=== PATIENT | female | born 1955 | race Two or more races ===

== ENCOUNTER → 2021-01-20 | Outpatient (CLI) | payer MEDICARE ==
[~2021-01-20] MED LIST: CONTRAST GIVEN. MC PRN
[2021-01-20 08:30] LABS: BASO % 1 % (0-3); EOS # 0.3 x10^3/uL (0.0-0.7); EOS % 5 % (0-3); HEMATOCRIT 40.3 % (36.0-47.0); HEMOGLOBIN 13.5 g/dL (12.0-15.5); LYMPH # 1.7 x10^3/uL (1.0-4.8); LYMPH % 36 % (24-48); MEAN CORPUSCULAR HEMOGLOBIN 27 pg (25-35); MEAN CORPUSCULAR HGB CONC 34 g/dL (31-37); MEAN CORPUSCULAR VOLUME 81 fL (79-100); MONO # 0.6 x10^3/uL (0.0-1.1); MONO % 12 % (0-9); NEUT # 2.2 x10^3/uL (1.8-7.7); NEUT % 46 % (31-73); PLATELET COUNT 229 x10^3/uL (140-400); WHITE BLOOD COUNT 4.7 x10^3/uL (4.0-11.0)
[2021-01-20 08:50] LABS: DIRECT BILIRUBIN 0.2 mg/dL (0.0-0.2); TOTAL BILIRUBIN 0.6 mg/dL (0.2-1.0); TOTAL PROTEIN 8.1 g/dL (6.4-8.2)
[2021-01-20 09:31] LABS: CREATININE 0.5 mg/dL (0.6-1.0); GFR 123.8
[2021-01-20] MEDS: IOHEXOL 240 MG/ML 50ML VIAL. PO ONE (10:00)
[2021-01-20] MEDS: IOHEXOL 300 MG/ML 100ML VIAL. IV ONE (10:00)
--- NOTE | 2021-01-20 10:50 | RAD ---
EXAM: Abdomen and pelvis CT with intravenous contrast. HISTORY: Cholelithiasis. TECHNIQUE: Computed tomographic images of the abdomen and pelvis were obtained following the administ ration of intravenous contrast. Multiplanar reformatting was performed. *One or more of the following individualized dose reduction techniques were utilized for this examina tion: 1. Automated exposure control. 2. Adjustment of the mA and/or kV according to patient size. 3. Use of iterative reconstruction technique. COMPARISON: None. FINDINGS: Evaluation of the lower thorax demonstrates medial right middle lobe and lingular atelectas is or scarring. There is no infiltrate or pleural effusion. No suspicious hepatic lesion is seen. The re is cholelithiasis. There is hyperdensity within the gallbladder fundus which may be due to stones within a phrygian cap or segmental phrygian cap wall calcification. There is a prominent common bile duct. No common duct stone is seen on this exam. The pancreas, spleen, stomach and adrenal glands are unremarkable. The kidneys are unremarkable. There is no appendicitis. There is moderate colonic stool. There is no bowel obstruction. The urinary bladder, uterus and adnexal regions are unremarkable. The aorta is normal in caliber. There is no ly mphadenopathy. There is no suspicious osseous lesion. There is degenerative change primarily at L1-L2 and L5-S1. IMPRESSION: 1. Cholelithiasis with associated stones within the phrygian cap or slight phrygian cap wall calcific ation. Note is made that the gallbladder sonography can better assess for superimposed cholecystitis if there is clinical concern. 2. Mild common bile duct dilatation. No convincing stone is seen. However, gallbladder sonography or MRCP can better assess for choledocholithiasis if there is clinical concern. Electronically signed by: Claudia Reeves MD (01/20/2021 10:47 AM) [id number]
== END ==
LOC: CT 09:38
PROVIDERS: ATTEND Surgery
DX: K80.20 Calculus of gallbladder without cholecystitis without obstruction (principal); K83.9 Disease of biliary tract, unspecified
CPT/HCPCS: 36415; 74177; 80076; 82565; 84520; 85025; Q9966; Q9967

== ENCOUNTER → 2021-01-27 | Outpatient (CLI) | payer MEDICARE ==
[~2021-01-27] MED LIST changes: +AMLO-186 PO; -CONTRAST GIVEN. MC PRN; +HYDR-2761 PO; +HYDR-2868 PO; +LOSA1TAB22 PO; +OMEG1CAP27 PO; +OMEP20TA8 PO; +POTA20TA4 PO
== END ==
LOC: LAB 13:57
PROVIDERS: ATTEND Surgery
DX: Z01.812 Encounter for preprocedural laboratory examination (principal); K80.20 Calculus of gallbladder without cholecystitis without obstruction; Z20.822 Contact with and (suspected) exposure to COVID-19
CPT/HCPCS: U0003

== ENCOUNTER 2021-01-31 06:08 | Observation (INO) | payer MEDICARE ==
[2021-01-30 23:00] VITALS: BP 117/61
[~2021-01-31] VITALS: Ht 160 cm; Wt 85.0 kg
[2021-01-31] VITALS (11 sets, daily range): BP systolic 102–143; BP diastolic 45–91
[~2021-01-31 06:08] MED LIST changes: -HYDR-2761 PO; +HYDROmorphone 2 MG/ML VIAL IVP PRN; +IV RINGERS,LACTATED 1000ML 1,000 ML IV SCH; +PROCHLORPERAZINE 10 MG/2 ML VIAL. IVP PRN; +fentaNYL PF VIAL 100 MCG/2 ML VIAL IVP PRN
[2021-01-31] MEDS ORDERED: BUPIVACAINE MPF 0.5% 30 ML VIAL. ONE (07:07)
[2021-01-31] MEDS ORDERED: SURGICEL HEMOSTAT 4X8 EACH. ONE (07:07)
[2021-01-31] MEDS ORDERED: IOHEXOL 300 MG/ML 50 ML VIAL. ONE (07:07)
[2021-01-31] MEDS ORDERED: PROPOFOL 10 MG/ML (20ML) VIAL. IV ONE (07:14)
[2021-01-31] MEDS ORDERED: LIDOCAINE 2% PF 5 ML VIAL. ONE (07:14)
[2021-01-31] MEDS ORDERED: SUCCINYLCHOLINE 200 MG/10 ML VIAL. ONE (07:15)
[2021-01-31] MEDS ORDERED: fentaNYL PF VIAL 100 MCG/2 ML VIAL ONE ×4 (07:15→10:09)
[2021-01-31] MEDS ORDERED: ROCURONIUM 50 MG/5 ML VIAL. ONE (07:15)
[2021-01-31] MEDS ORDERED: MIDAZOLAM HCL/PF 2 MG/2 ML VIAL. ONE (07:28)
[2021-01-31] MEDS ORDERED: DESFLURANE 31 TO 60 MINUTES IH ONE (07:57)
[2021-01-31] MEDS ORDERED: PHENYLEPHRINE in 0.9% NACL PF 1 MG/10 ML SYRINGE. IV ONE (07:57)
[2021-01-31] MEDS ORDERED: NEOSTIGMINE METHYLSULFATE 5 MG/5 ML SYRINGE. ONE (08:28)
[2021-01-31] MEDS ORDERED: GLYCOPYRROLATE 1 MG/5 ML VIAL. ONE (08:28)
[2021-01-31] MEDS ORDERED: PROCHLORPERAZINE 10 MG/2 ML VIAL. ONE (08:54)
--- NOTE | 2021-01-31 09:03 | PDOC4 ---
Operative Note Operative Note Operative Note: Preoperative Diagnosis: Symptomatic cholelithiasis Postoperative Diagnosis: Same Procedure: Laparoscopic cholecystectomy with intraoperative cholangiogram Surgeons: Keith Ham Boner: SHALOM Barba Anesthesia: Gen. Estimated Blood Loss: 10 mL Specimen: Gallbladder to pathology Findings: Common duct filling defects Drains: 19 Fr ALIREZA Complications: None Indications: The patient is a 65-year-old female who was referred with symptomatic cholelithiasis. Surgical treatment was offered by means of a laparoscopic cholecystectomy. The risks of surgery were discussed which include bleeding, infection, bile duct injury, bile leak, pain, the potential for additional surgeries or procedures. The patient understands and would like to proceed. Description: The patient was taken to the operating room and laid supine on the operating table. General anesthesia was performed. The abdomen was prepped with ChloraPrep and draped in a standard surgical fashion. A small supraumbilical incision was made with a scalpel. The Veress needle was then in serted and a pneumoperitoneum was then created. A 5 mm trocar was then inserted and the laparoscope was introduced. In the upper midabdomen a 12 mm trocar was inserted and in the right upper quadrant two 5 mm trocar were inserted. The gallbladder was retracted cephalad. The cystic duct was dissected free from surrounding tissues. One clip was placed on the duct near the gallbladder junction. An opening was made in the duct and a cholangiocatheter placed within and secured with a clip. Using contrast dye and fluoroscopy an intraoperative cholangiogram was performed. This showed filling defects in the distal common duct with some proximal dilation consistent with choledocholithiasis. Contrast did pass into the duodenum. The clip and catheter were then withdrawn. Two clips were placed on the cystic duct and it was divided. The cystic artery was then identified, dissected free, doubly clipped and divided as well. The gallbladder was then mobilized away from the liver with cautery. The gallbladder was then placed in an endoscopic bag and extracted at the superior trocar site. The fascia there was closed with an 0 Vicryl suture and infiltrated with 0.5% marcaine. A 19 Moroccan ALIREZA drain was then left in the gallbladder fossa with an exit site in the right lateral port incision. This was secured to the skin with 2-0 silk. All blood and irrigation fluid was suctioned and hemostasis was good. The remaining ports were removed and the pneumoperitoneum was relieved. The skin incisions were closed using 4-0 Monocryl suture. Steri-Strips and dressings were then applied. The patient tolerated the procedure well and was sent to the recovery room in stable condition. At the end of the case all counts were correct. STACY TEAGUE MD Jan 31, 2021 09:03
[2021-01-31] MEDS: IV NORMAL SALINE 1000ML BAG 1,000 ML IV SCH (09:15)
[2021-01-31] MEDS ORDERED: 0.9 % SODIUM CHLORIDE 10 ML DISP.SYRIN. IV PRN (09:15)
[2021-01-31] MEDS: IV 1/2 NORMAL SALINE 1,000 ML IV SCH ×2 (09:15→23:17)
[2021-01-31] MEDS ORDERED: NALOXONE 0.4 MG/ML VIAL. IV PRN (09:15)
[2021-01-31] MEDS ORDERED: ONDANSETRON PF 4 MG/2 ML VIAL. IVP PRN (09:15)
[2021-01-31] MEDS ORDERED: HYDROcodone/APAP 5/325MG 1 TAB TABLET PO PRN (09:15)
[2021-01-31] MEDS ORDERED: HYDROmorphone 2 MG/ML VIAL IV PRN (09:15)
[2021-01-31] MEDS: fentaNYL PF VIAL 100 MCG/2 ML VIAL IVP PRN ×4 (09:17→10:13)
[2021-01-31] MEDS ORDERED: MORPHINE SULFATE 2 MG/ML VIAL. ONE (09:29)
[2021-01-31] MEDS: MORPHINE SULFATE 2 MG/ML VIAL. IVP PRN ×2 (09:34→10:14)
--- NOTE | 2021-01-31 10:06 | RAD ---
C-arm fluoroscopy with fluoroscopic spot views Clinical indications: Intraoperative cholangiogram. History of abdominal pain and cholelithiasis. Cho lecystectomy. Total fluoroscopic time: 0.35 minutes. Total fluoroscopic spot images: 4. FINDINGS/ IMPRESSION: Fluoroscopic spot views demonstrate 2 large stones within the common bile duct. The more proximal stone within the common bile duct could represent one large faceted stone or 2 separate ston es. Therefore, it is possible that there are 3 stones present here. There is another filling defect w ithin the distal common hepatic duct which may represent an additional stone. There is dilatation of the extrahepatic biliary tree. There is free flow of contrast from the common bile duct into the duod enum. I called this result to the radiology department at 10:00 AM on January 31, 2021 and the x-ray technolo rust told me that Dr. Parker did make mention of common bile duct stones after obtaining the cholang iogram in the operating room. Electronically signed by: Clovis Cooper MD (01/31/2021 10:03 AM) [id number]
--- NOTE | 2021-01-31 10:47 | PDOC2 ---
GI CONSULT Date of Service: DATE: 01/31/21 TIME: 10:39 Reason For Consult: CBD stones HPI: HPI: 65 y/o female who is Armenian-speaking - daughter Cherie helps with history and translation. Previously d/w Dr. Parker. Had lap radha this morning for symptomatic cholelithiasis, IOC noted choledochol ithiasis, admitted. Having some upper abd pain. H/o GERD on omeprazole QD. No dysphagia, n/v, diarrhea, hematochezia, melena, or weight loss. Lifelong history of constipation - untreated. No previous EGD. Reports normal colonoscopy ~12 years ago. No liver, pancreas, or PUD history. Labs on 01/20 significant for ALT 64, Alk Phos 140. Outpt CT noted prominent CBD. COVID negative 01/27. PMH: PMH: HTN tubal ligation, cholecystectomy FH: Family History: No pertinent hx Social History: Smoke: No ALCOHOL: none Drugs: None ROS: GEN: Denies fevers, chills, sweats HEENT: Denies blurred vision, sore throat CV: Denies chest pain RESP: Denies shortness of air, cough GI: Per HPI : Denies hematuria, dysuria ENDO: Denies weight changes NEURO: Denies confusion, dizziness MSK: Denies weakness, joint pain/swelling SKIN: Denies jaundice, pruritus Vitals: Vitals: Vital Signs Date Time Temp Pulse Resp B/P (MAP) Pulse Ox O2 Delivery O2 Flow Rate FiO2 01/31/21 10:14 15 100 Room Air 2.0 01/31/21 10:00 97.9 84 118/59 97.9 Allergies: Coded Allergies: latex (Verified Allergy, Unknown, Rash, 01/25/21) Medications: Current Medications Medications (Trade) Dose Ordered Sig/Emy Route PRN Reason Start Time Stop Time Status Last Admin Dose Admin Fentanyl Citrate (Fentanyl 2ml Vial) 50 mcg PRN Q5MIN PRN IVP MODERATE PAIN 4-6 01/31/21 06:00 02/01/21 05:59 01/31/21 10:13 Morphine Sulfate (Morphine Sulfate) 1 mg PRN Q10MIN PRN IVP SEVERE PAIN 7-10 01/31/21 06:00 02/01/21 05:59 01/31/21 10:14 Ringer's Solution 1,000 ml @ 30 mls/hr Q24H IV 01/31/21 06:00 01/31/21 17:59 01/31/21 07:10 Prochlorperazine Edisylate (Compazine) 5 mg PACU PRN PRN IVP NAUSEA, MRX1 01/31/21 06:00 02/01/21 05:59 01/31/21 09:17 Cefazolin Sodium/ Dextrose 50 ml @ 100 mls/hr 1X ONCE IV 01/31/21 06:00 01/31/21 06:29 DC 01/31/21 07:50 Iohexol (Omnipaque 300 Mg/ml) 50 ml STK-MED ONCE .ROUTE 01/31/21 07:07 01/31/21 07:07 DC 01/31/21 08:07 Bupivacaine HCl (Sensorcaine Mpf 0.5%) 30 ml STK-MED ONCE .ROUTE 01/31/21 07:07 01/31/21 07:07 DC 01/31/21 08:07 Imaging: Imaging: IOC 01/31 IMPRESSION: Fluoroscopic spot views demonstrate 2 large stones within the common bile duct. The more proximal stone within the common bile duct could represent one large faceted stone or 2 separate stones. Therefore, it is possible that there are 3 stones present here. There is another filling defect within the distal common hepatic duct which may represent an additional stone. There is dilatation of the extrahepatic biliary tree. There is free flow of contrast from the common bile duct into the duodenum. I called this result to the radiology department at 10:00 AM on January 31, 2021 and the x-ray technologist told me that Dr. Parker did make mention of common bile duct stones after obtaining the cholangiogram in the operating room. PE: GEN: NAD HEENT: Atraumatic, PERRL LUNGS: CTAB HEART: RRR ABD: pretty quiet, soft, epigastric and RUQ discomfort, RUQ drain serous, ice pack EXTREMITY: No edema SKIN: No rashes, no jaundice NEURO/PSYCH: A & O 3 A/P: A/P: S/p cholecystectomy, choledocholithiasis on IOC Upper abd pain GERD - on PPI CRC screen - overdue for screening COVID negative 01/27/21 -- D/w Dr. Wheatley - will recheck labs, plan for ERCP tomorrow morning. Outpt screening colonoscopy +/- EGD. ZAID CARVAJAL Jan 31, 2021 10:47
[2021-01-31] MEDS ORDERED: LOSARTAN POTASSIUM 50 MG TABLET. PO SCH ×2 (11:00→21:00)
[2021-01-31] MEDS ORDERED: hydroCHLOROthiazide 25 MG TABLET PO SCH ×2 (11:00→21:00)
[2021-01-31] MEDS ORDERED: amLODIPine BESYLATE 5 MG TABLET PO SCH ×2 (11:00→21:00)
[2021-01-31 11:30] LABS: HEMATOCRIT 40.9 % (36.0-47.0); HEMOGLOBIN 13.4 g/dL (12.0-15.5); RED BLOOD COUNT 5.05 x10^6/uL (3.50-5.40); WHITE BLOOD COUNT 10.8 x10^3/uL (4.0-11.0)
[2021-01-31 11:49] LABS: ALBUMIN 3.7 g/dL (3.4-5.0); ALBUMIN/GLOBULIN RATIO 0.9 (1.0-1.7); CALCIUM 8.8 mg/dL (8.5-10.1); CREATININE 0.6 mg/dL (0.6-1.0); GFR 100.3; POTASSIUM 3.2 mmol/L (3.5-5.1); TOTAL BILIRUBIN 0.3 mg/dL (0.2-1.0); TOTAL PROTEIN 7.7 g/dL (6.4-8.2)
[2021-01-31] MEDS: PANTOPRAZOLE 40 MG TABLET.DR. PO SCH (12:51)
[2021-01-31] MEDS: POTASSIUM CHLORIDE 10 MEQ TABLET.ER. PO SCH (12:52)
[2021-01-31] MEDS: hydrALAZINE 25 MG TABLET PO SCH ×2 (12:52→21:28)
[2021-01-31] MEDS: HYDROcodone/APAP 5/325MG 1 TAB TABLET PO PRN (15:24)
[2021-02-01 03:00] VITALS: BP 115/60
[2021-02-01] MEDS ORDERED: PROPOFOL 10 MG/ML (20ML) VIAL. IV ONE ×3 (06:18→07:41)
[2021-02-01] MEDS ORDERED: SUCCINYLCHOLINE 200 MG/10 ML VIAL. ONE (06:18)
[2021-02-01] MEDS ORDERED: ROCURONIUM 50 MG/5 ML VIAL. ONE (06:18)
[2021-02-01] MEDS ORDERED: ONDANSETRON PF 4 MG/2 ML VIAL. ONE (06:18)
[2021-02-01] MEDS ORDERED: DEXAMETHASONE SOD PHOS 4 MG/ML VIAL ONE (06:18)
[2021-02-01] MEDS ORDERED: LIDOCAINE 2% PF 5 ML VIAL. ONE (06:18)
[2021-02-01] MEDS ORDERED: IOHEXOL 300 MG/ML 100ML VIAL. ONE (06:32)
[2021-02-01] MEDS ORDERED: IV RINGERS,LACTATED 1000ML 1,000 ML IV ONE (06:45)
[2021-02-01] MEDS ORDERED: IV RINGERS,LACTATED 1000ML 1,000 ML IV SCH (07:00)
[2021-02-01] MEDS: PANTOPRAZOLE 40 MG TABLET.DR. PO SCH (07:30)
[2021-02-01] MEDS ORDERED: SIMETHICONE DROPS 40 MG/0.6 ML ORAL SUSPENSION. ONE (07:38)
[2021-02-01] MEDS ORDERED: GLUCAGON,HUMAN RECOMBINANT 1 MG/ML VIAL. IM ONE (07:45)
--- NOTE | 2021-02-01 08:02 | PDOC4 ---
Operative Note Operative Note EGD/attempted ERCP Meds propofol per anesthesia Pre-op dx Abnl IOC/s/p radha post-op dx non-visualized CBD/pd Plan o/p MRCP in 1-2 weeks, repeat ERCP if stone present at [facility] STACY MACHADO MD Feb 01, 2021 08:02
[2021-02-01] MEDS: POTASSIUM CHLORIDE 10 MEQ TABLET.ER. PO SCH (09:00)
[2021-02-01] MEDS: hydrALAZINE 25 MG TABLET PO SCH (09:00)
[2021-02-01] MEDS: IV NORMAL SALINE 1000ML BAG 1,000 ML IV SCH (09:15)
--- NOTE | 2021-02-01 09:37 | NUR ---
SW following. Discussed with RN, pt from home, room air, clear liquid diet. Pt had surgery 01/31 and 02/01. RN advised no SW needs, and anticipates pt can discharge home today with self care. SW will continue to follow.
[2021-02-01] MEDS: HYDROcodone/APAP 5/325MG 1 TAB TABLET PO PRN (09:46)
[2021-02-01 10:15] VITALS: BP 137/77
--- NOTE | 2021-02-01 10:18 | PDOC ---
SURGICAL PROGRESS NOTE DATE: 02/01/21 TIME: 10:15 Subjective hungry some gas pains Vital Signs Vital Signs Date Time Temp Pulse Resp B/P (MAP) Pulse Ox O2 Delivery O2 Flow Rate FiO2 02/01/21 09:46 16 Room Air 02/01/21 09:00 65 133/66 02/01/21 08:22 94 4 02/01/21 07:55 97.5 97.5 I&O Intake and Output 02/01/21 07:00 Intake Total 1300 ml Output Total 50 ml Balance 1250 ml Intake Oral 700 ml IV Total 600 ml Output Drainage Total 50 ml # Voids 4 General: Alert, Oriented X3, Cooperative Abdomen: Soft, Other (drain serosang) Labs Laboratory Tests Test 01/31/21 11:00 White Blood Count 10.8 x10^3/uL (4.0-11.0) Red Blood Count 5.05 x10^6/uL (3.50-5.40) Hemoglobin 13.4 g/dL (12.0-15.5) Hematocrit 40.9 % (36.0-47.0) Mean Corpuscular Volume 81 fL (79-100) Mean Corpuscular Hemoglobin 27 pg (25-35) Mean Corpuscular Hemoglobin Concent 33 g/dL (31-37) Red Cell Distribution Width 14.0 % (11.5-14.5) Platelet Count 196 x10^3/uL (140-400) Sodium Level 143 mmol/L (136-145) Potassium Level 3.2 mmol/L (3.5-5.1) Chloride Level 104 mmol/L (98-107) Carbon Dioxide Level 29 mmol/L (21-32) Anion Gap 10 (6-14) Blood Urea Nitrogen 13 mg/dL (7-20) Creatinine 0.6 mg/dL (0.6-1.0) Estimated GFR (Cockcroft-Gault) 100.3 BUN/Creatinine Ratio 22 (6-20) Glucose Level 100 mg/dL (70-99) Calcium Level 8.8 mg/dL (8.5-10.1) Total Bilirubin 0.3 mg/dL (0.2-1.0) Aspartate Amino Transf (AST/SGOT) 25 U/L (15-37) Alanine Aminotransferase (ALT/SGPT) 31 U/L (14-59) Alkaline Phosphatase 93 U/L (46-116) Total Protein 7.7 g/dL (6.4-8.2) Albumin 3.7 g/dL (3.4-5.0) Albumin/Globulin Ratio 0.9 (1.0-1.7) Laboratory Tests Test 01/31/21 11:00 White Blood Count 10.8 x10^3/uL (4.0-11.0) Red Blood Count 5.05 x10^6/uL (3.50-5.40) Hemoglobin 13.4 g/dL (12.0-15.5) Hematocrit 40.9 % (36.0-47.0) Mean Corpuscular Volume 81 fL (79-100) Mean Corpuscular Hemoglobin 27 pg (25-35) Mean Corpuscular Hemoglobin Concent 33 g/dL (31-37) Red Cell Distribution Width 14.0 % (11.5-14.5) Platelet Count 196 x10^3/uL (140-400) Sodium Level 143 mmol/L (136-145) Potassium Level 3.2 mmol/L (3.5-5.1) Chloride Level 104 mmol/L (98-107) Carbon Dioxide Level 29 mmol/L (21-32) Anion Gap 10 (6-14) Blood Urea Nitrogen 13 mg/dL (7-20) Creatinine 0.6 mg/dL (0.6-1.0) Estimated GFR (Cockcroft-Gault) 100.3 BUN/Creatinine Ratio 22 (6-20) Glucose Level 100 mg/dL (70-99) Calcium Level 8.8 mg/dL (8.5-10.1) Total Bilirubin 0.3 mg/dL (0.2-1.0) Aspartate Amino Transf (AST/SGOT) 25 U/L (15-37) Alanine Aminotransferase (ALT/SGPT) 31 U/L (14-59) Alkaline Phosphatase 93 U/L (46-116) Total Protein 7.7 g/dL (6.4-8.2) Albumin 3.7 g/dL (3.4-5.0) Albumin/Globulin Ratio 0.9 (1.0-1.7) Assessment/Plan s/p radha ERCP note reviewed, will need MRCP in 1-2 weeks, D/w GI--they will call and arrange, if stones present then ERCP at will dc home with drain until determined if ERCP needed advance diet if tolerates, DC later today Justicifation of Admission Dx: Justifications for Admission: Justification of Admission Dx: Yes Comments: choledocholithiasis RIMMA ULLOA APRN Feb 01, 2021 10:17
[2021-02-01] MEDS ORDERED: HYDR-2761 PO (10:22)
--- NOTE | 2021-02-01 10:24 | DISCH ---
DISCHARGE INSTRUCTIONS Condition on Discharge Condition on Discharge: Stable Activity After Discharge Activity Instructions for Disc: Activity as tolerated, Avoid exertion Bathing Instructions: Shower-keep dressing dry Lifting Instructions after Dis: No heavy lifting Driving Instructions after Dis: Do not drive Diet after Discharge Diet after Discharge: Low Fat Wound Incision Care Wound/Incision Care: Change dressing, May get incision wet Other wound/incision instructi: drain care as instructed Contacting the [facility] after DC Call your doctor for: Concerns you may have Follow-Up Follow up with: Dr Parker 2 weeks, call to schedule [phone] Follow Up With: Dr Wheatley will call to arrange MRCP RIMMA ULLOA APRN Feb 01, 2021 10:24
[2021-02-01] MEDS: IV 1/2 NORMAL SALINE 1,000 ML IV SCH (11:55)
[2021-02-01 14:16] VITALS: BP 114/58
--- NOTE | 2021-02-01 16:41 | NUR ---
Discharge instructions and belongings reviewed with patient verbalized understanding. Patient was escorted out via wheelchair by NA accompanied by her daughter.
--- NOTE | 2021-02-02 14:09 | PATHOLOGY ---
[facility] Accession Number: [id number] . 01 Material submitted: . gallbladder - GALLBLADDER . 01 Clinical history: . SYMPTOMATIC CHOLELITHIASIS LAP DARON WITH GRAMS GALLBLADDER AND CONTENTS GALLSTONES . 02 Diagnosis: Gallbladder, laparoscopic cholecystectomy: - Cholelithiasis. - Chronic and focal acute cholecystitis with focally increased eosinophils. (JPM:leonel; 02/02/2021) S 02/02/2021 0933 Local . 02 Comment: There is no evidence of malignancy. (JPM:leonel; 02/02/2021) . 02 Electronically signed: . Tex Deluna MD, Pathologist NPI- [id number] . 01 Gross description: . Fixative: Formalin Labeled: Gallbladder Specimen received: Intact gallbladder Dimensions: 6.4 x 2.4 x 1.6 cm Serosa: [place] Mucosa: Velvety, bile-stained Average wall thickness: 0.1 cm Calculi: Present displaying a bright yellow, nodular to light brown, staghorn appearance Abnormalities: None identified . Production Assistant body, fundus, and the cystic duct margin in A1. (CAA; 02/01/2021) QAC/QAC 02/01/2021 1148 Local . 02 Pathologist provided ICD-10: K80.12 . 02 CPT . 028497 Specimen Comment: A courtesy copy of this report has been sent to [phone] Specimen Comment: Report sent to Performed at: 01 [facility] [address], [place] [id number] MD De Howard MD Phone: [phone] Performed at: 02 [facility] [place] [id number] MD Tex Deluna MD Phone: [phone]
== END 2021-02-01 16:51 | disposition home or self-care (01) ==
LOC: SURG 06:08 → INTOOBSV 09:03 → 4 NORTH 09:03
PROVIDERS: ADMIT Surgery; ATTEND Surgery
DX: K80.20 Calculus of gallbladder without cholecystitis without obstruction (principal); Z20.822 Contact with and (suspected) exposure to COVID-19; I10 Essential (primary) hypertension; K21.9 Gastro-esophageal reflux disease without esophagitis; Z98.51 Tubal ligation status
CPT/HCPCS: 36415; 47563; 74300; 80053; 85027; 88304; 96360; 96361; A4213; A4314; A4344; A4364; A4930; A6219; C1887; G0378; G0379; J0330; J0690; J0780; J1100; J2250; J2270; J2370; J2405; J2704; J2710; J3010; J3490; J7120; Q9967; A4315; A4452; A4657